=== PATIENT | male | born 1990 | race Caucasian/White ===

== ENCOUNTER 2016-11-24 22:52 | Inpatient (IN) | payer BC ==
[~2016-11-24] VITALS: Ht 167.6 cm; Wt 82.2 kg
[~2016-11-24 22:52] MED LIST: ALBUTEROL SULF8.5 GM IH; ASPIR-LOW81 MG PO; CELEXA10 MG PO; DOXYCYCLINE HY100 MG PO; ESCITALOPRAM OX10 MG PO; FLONASE16 G1 BOTH NARES; FRUITY VITAMIN1 EACH PO; LISINOPRIL-HCT1 EAC3 PO; MOTRIN800 MG PO; NICOTINE PATCH1 EAC2 TD; PANTOPRAZOLE SO40 MG PO; PERCOCET 5/31 TABLET PO; PREDNISONE20 MG PO; PROTONIX40 MG PO; ROBITUSSIN AC,T10 ML PO; TYLENOL W/COD1 COMBO PO; VENTOLIN HFA18 GM IH; ZITHROMAX Z-PA250 MG PO; ZOFRAN ODT4 MG PO; ZOFRAN4 MG PO
[2016-11-24 23:22] LABS: ADD MIUA? YES; BILIRUBIN SMALL; BLOOD TRACE; COLOR DK YELLOW ((YELLOW)); GLUCOSE (STRIP) NEGATIVE; KETONES 15; LEUKOCYTES NEGATIVE; NITRITE NEGATIVE; PROTEIN (STRIP) 100; SPECIFIC GRAVITY 1.029 (1.000-1.030); UROBILINOGEN 0.2 MG/DL (0.2-1.0)
[2016-11-24 23:36] LABS: HEMATOCRIT 52.3 % (38.0-50.0); MCH 31.6 PG (29.0-34.0); MCHC 36.3 G/DL (30.0-36.0); MEAN PLAT.VOLUME 12.6 uM^3 (9.0-12.4); PLATELET COUNT 264 K/uL (156-360); RBC DIS.WIDTH-CV 12.6 % (11.8-14.6); RBC DIS.WIDTH-SD 39.5 % (39-53); RED BLOOD COUNT 6.01 M/uL (4.00-5.50); WHITE BLOOD COUNT 16.9 K/uL (4.1-10.2)
[2016-11-24 23:38] LABS: EPITHELIAL CELLS RARE /HPF; MUCUS NONE SEEN /LPF; RED BLOOD CELLS 0-5 /HPF (0-5); WHITE BLOOD CELLS 0-5 /HPF (0-5)
[2016-11-24 23:39] LABS: BACTERIA RARE /HPF; CASTS PRESENT /LPF; CRYSTALS NONE SEEN; FINE GRANULAR CASTS RARE /LPF; HYALINE CASTS 0-5 /LPF; UCUL ADDED? NO
[2016-11-24 23:45] LABS: CHLORIDE 98 mEq/L (99-109); POTASSIUM 3.7 mEq/L (3.7-5.4); SODIUM 134 mEq/L (136-147)
[2016-11-24 23:47] LABS: GLUCOSE 118 mg/dL (70-99)
[2016-11-24 23:48] LABS: ANION GAP 17 MEQ/L (2-14)
[2016-11-24 23:49] LABS: TOTAL BILIRUBIN 1.2 mg/dL (0.0-1.0)
[2016-11-24 23:51] LABS: ALKALINE PHOSPHATASE 81 IU/L (3-129); GFR ESTIMATE (CALCULATED) 55 mL/min/
[2016-11-24 23:52] LABS: UREA NITROGEN (BUN) 24 mg/dL (9-23)
[2016-11-24 23:54] LABS: LIPASE 24 U/L (1.0-51.0)
[2016-11-25] MEDS ORDERED: PROTONIX40 MG PO ×2 (03:41)
[2016-11-25] MEDS ORDERED: LISINOPRIL10 MG PO ×2 (03:42→15:24)
[2016-11-25 04:21] VITALS: BP 127/83
[2016-11-25 04:25] VITALS: BP 127/83
[2016-11-25 04:54] LABS: HEMATOCRIT 45.9 % (38.0-50.0); MCHC 35.9 G/DL (30.0-36.0); MEAN PLAT.VOLUME 12.7 uM^3 (9.0-12.4); PLATELET COUNT 188 K/uL (156-360); RBC DIS.WIDTH-CV 12.4 % (11.8-14.6); RED BLOOD COUNT 5.16 M/uL (4.00-5.50)
[2016-11-25 04:56] LABS: WHITE BLOOD COUNT 11.8 K/uL (4.1-10.2)
[2016-11-25 05:06] LABS: AMYLASE 35 IU/L (1-118)
[2016-11-25 05:07] LABS: CHLORIDE 105 mEq/L (99-109); POTASSIUM 3.8 mEq/L (3.7-5.4); SODIUM 136 mEq/L (136-147)
[2016-11-25 05:08] LABS: GLUCOSE 95 mg/dL (70-99)
[2016-11-25 05:10] LABS: ANION GAP 12 MEQ/L (2-14)
[2016-11-25 05:12] LABS: GFR ESTIMATE (CALCULATED) > 59 mL/min/
[2016-11-25 05:13] LABS: UREA NITROGEN (BUN) 23 mg/dL (9-23)
[2016-11-25 06:54] LABS: LIPASE 36 U/L (1.0-51.0)
[2016-11-25 08:04] VITALS: BP 121/58
[2016-11-25 12:51] VITALS: BP 121/69
[2016-11-25] MEDS ORDERED: PROAIR HFA8.5 GM IH (15:10)
[2016-11-25] MEDS ORDERED: LEXAPRO20 MG PO (15:24)
[2016-11-25 16:27] VITALS: BP 121/76
[2016-11-25 23:58] VITALS: BP 128/81
[2016-11-26 07:37] VITALS: BP 143/81
[2016-11-26 07:46] LABS: ANION GAP 11 MEQ/L (2-14); CHLORIDE 103 MEQ/L (99-109); GFR ESTIMATE (CALCULATED) > 59 mL/min/; GLUCOSE 81 mg/dL (70-99); POTASSIUM 3.5 MEQ/L (3.7-5.4); SAMPLE HEMOLYSIS CHECK 0; SAMPLE ICTERIC CHECK 0; SAMPLE LIPEMIA CHECK 0; SODIUM 137 MEQ/L (136-147); UREA NITROGEN (BUN) 14 mg/dL (9-23)
[2016-11-26 07:54] LABS: HEMATOCRIT 44.8 % (38.0-50.0); MCHC 34.6 G/DL (30.0-36.0); MCV 92.4 FL (86-99); MEAN PLAT.VOLUME 13.2 uM^3 (9.0-12.4); PLATELET COUNT 166 K/uL (156-360); RBC DIS.WIDTH-CV 12.4 % (11.8-14.6); RBC DIS.WIDTH-SD 42.3 % (39-53); RED BLOOD COUNT 4.85 M/uL (4.00-5.50)
[2016-11-26 07:56] LABS: WHITE BLOOD COUNT 5.8 K/uL (4.1-10.2)
[2016-11-26 15:48] VITALS: BP 143/97
[2016-11-26 17:05] LABS: INTERNAL CONTROL VALID? YES
[2016-11-26 23:55] VITALS: BP 131/91
[2016-11-27 05:44] LABS: HEMATOCRIT 44.2 % (38.0-50.0); MCH 32.7 PG (29.0-34.0); MCHC 35.1 G/DL (30.0-36.0); MCV 93.2 FL (86-99); MEAN PLAT.VOLUME 12.9 uM^3 (9.0-12.4); PLATELET COUNT 148 K/uL (156-360); RBC DIS.WIDTH-CV 12.4 % (11.8-14.6); RBC DIS.WIDTH-SD 42.2 % (39-53); RED BLOOD COUNT 4.74 M/uL (4.00-5.50); WHITE BLOOD COUNT 4.4 K/uL (4.1-10.2)
[2016-11-27 06:06] LABS: ALKALINE PHOSPHATASE 44 IU/L (3-129); DIRECT BILIRUBIN 0.1 mg/dL (0.0-0.3); TOTAL BILIRUBIN 0.9 MG/DL (0.0-1.0)
[2016-11-27 08:40] VITALS: BP 124/86
[2016-11-27 10:34] LABS: ANTI-HEPATITIS A VIRUS (IGM) Nonreactive; HAV INDEX 0.16; HBSG INDEX 0.18; HPCA INDEX 0.43
[2016-11-27 10:36] LABS: ANTI-HEPATITIS B CORE (IGM) Nonreactive; HBC IgM INDEX 0.17
[2016-11-27 16:18] VITALS: BP 165/88
[2016-11-27 19:51] VITALS: BP 140/86
[2016-11-27 23:49] VITALS: BP 127/89
[2016-11-28 05:39] LABS: EOSINOPHIL (%) 3.3 % (0-5); EOSINOPHIL COUNT 0.2 K/uL (0-0.3); IMMATURE GRANULOCYTE (%) 0.2 % (0.0-0.7); LYMPHOCYTE COUNT 2.2 K/uL (1.0-2.8); MONOCYTE (%) 7.7 % (3-12); MONOCYTE COUNT 0.4 K/uL (0-0.8); NEUTROPHIL (%) 43.3 % (45-76); NEUTROPHIL COUNT 2.1 K/uL (1.8-6.4)
[2016-11-28 05:59] LABS: HEMATOCRIT 42.7 % (38.0-50.0); MCH 32.3 PG (29.0-34.0); MCHC 35.1 G/DL (30.0-36.0); RBC DIS.WIDTH-CV 12.2 % (11.8-14.6); RBC DIS.WIDTH-SD 41.1 % (39-53); RED BLOOD COUNT 4.64 M/uL (4.00-5.50); WHITE BLOOD COUNT 4.9 K/uL (4.1-10.2)
[2016-11-28 06:02] LABS: ANION GAP 4 MEQ/L (2-14); CHLORIDE 105 MEQ/L (99-109); GFR ESTIMATE (CALCULATED) > 59 mL/min/; GLUCOSE 99 mg/dL (70-99); POTASSIUM 3.6 MEQ/L (3.7-5.4); SAMPLE HEMOLYSIS CHECK 0; SAMPLE ICTERIC CHECK 0; SAMPLE LIPEMIA CHECK 0; SODIUM 138 MEQ/L (136-147); UREA NITROGEN (BUN) 11 mg/dL (9-23)
[2016-11-28 07:04] LABS: MEAN PLAT.VOLUME 13.1 uM^3 (9.0-12.4); PLAT.SUFFICIENCY ADEQUATE; PLATELET COUNT 157 K/uL (156-360); USER ID STC
[2016-11-28 08:04] VITALS: BP 136/79
[2016-11-28 12:40] LABS: POC NON-PRINT COM 1 ND
[2016-11-28] MEDS ORDERED: PANTOPRAZOLE SO40 MG PO (14:33)
[2016-11-28] MEDS ORDERED: LISINOPRIL2.5 MG PO (14:33)
[2016-11-28] MEDS ORDERED: NICOTINE PATCH1 EAC2 TD (14:34)
== END 2016-11-28 15:36 | disposition home or self-care (01) | DRG 699 ==
LOC: EME 22:52 → EDOF 11-25 02:49 → 3EAST 11-25 02:49
PROVIDERS: Internal Medicine; Internal Medicine Gastroenterology
PROC: 0DB38ZX Excision of Lower Esophagus, Via Natural or Artificial Opening Endoscopic, Diagnostic (ICD-10-PCS; principal; 2016-11-27)
DX: N28.9 Disorder of kidney and ureter, unspecified (principal); E87.1 Hypo-osmolality and hyponatremia; E86.0 Dehydration; E87.6 Hypokalemia; R11.2 Nausea with vomiting, unspecified; K20.9 Esophagitis, unspecified; I10 Essential (primary) hypertension; K30 Functional dyspepsia; K21.9 Gastro-esophageal reflux disease without esophagitis; F41.9 Anxiety disorder, unspecified; N20.0 Calculus of kidney; K76.0 Fatty (change of) liver, not elsewhere classified; K44.9 Diaphragmatic hernia without obstruction or gangrene; F17.200 Nicotine dependence, unspecified, uncomplicated; Z91.14 Patient's other noncompliance with medication regimen
CPT/HCPCS: 71020; 74176; 76705; 80048; 80053; 80074; 80076; 81003; 82150; 82272; 83690; 85025; 85027; 87040; 88305; 99281; 99285; C9113; J0696; J2250; J2405; J3010; J3480; J7030; J7050; S0028